=== PATIENT | female | born 1940 | race Caucasian/White ===

== ENCOUNTER → 2018-09-09 | Outpatient (CLI) | payer MEDICARE ==
--- NOTE | 2018-09-09 14:10 | Diagnostic Imaging Report ---
PROCEDURE:X-RAY ABDOMEN - KUB COMPARISON:None. INDICATIONS:KIDNEY STONES FINDINGS: There are no dilated loops of bowel to suggest obstruction. There are no masses. Linear hyperdensity in the right side of the pelvis could represent Steinstrasse. Right upper quadrant calcification likely are small gallstones. Calcification in the left upper quadrant changes positions with different patient positions. This is medial to the renal shadow. There is no evidence of free air. No acute osseous abnormalities are present. Diffuse degenerative changes of the spine with bridging osteophytosis at several levels. CONCLUSION: No acute abdominal abnormality. Noah Escoto D.O. Dictated by: Noah Escoto D.O. on 09/09/2018 at 14:21 Electronically approved by: Noah Escoto D.O. on 09/09/2018 at 14:21
--- NOTE | 2018-09-09 20:45 | Diagnostic Imaging Report ---
EXAM: Renal Ultrasound INDICATION: ^PRSNL HX OF URINARY CALCULI/CYST OF KIDNEY COMPARISON: None TECHNIQUE: Transverse and longitudinal images of the kidneys and bladder were obtained. FINDINGS: Right Kidney: Size: 11.2 x 5.3 x 4.5 cm Echogenicity: Normal Parenchymal thickness: Normal Collecting system: No hydronephrosis Stones: None Cyst/Mass: None Left Kidney: Size: 10.5 x 4.9 x 4.4 cm Echogenicity: Normal Parenchymal thickness: Normal Collecting system: No hydronephrosis Stones: None Cyst/Mass: * 1.7 x 1.5 x 1.5 cm simple cyst in the superior pole. * 2.8 x 1.6 x 1.7 cm cyst with a thin single septation in the inferior pole. Bladder: Normal Only the left ureteral jet is visualized. Prevoid volume 98 mL. No post void images were acquired. IMPRESSION: 1. No hydronephrosis. No renal stones. 2. 2 benign left renal cysts. Signed by: Dr. Gunnar Bowens M.D. on 09/09/2018 8:42 PM
== END ==
LOC: US 12:11
PROVIDERS: ATTEND Urology
DX: N28.1 Cyst of kidney, acquired (principal); Z87.442 Personal history of urinary calculi
CPT/HCPCS: 74018; 76770

== ENCOUNTER → 2020-10-13 | Outpatient (CLI) | payer MEDICARE | LOC: RAD 16:08 | PROVIDERS: ATTEND Internal Medicine | DX: R91.8 Other nonspecific abnormal finding of lung field (principal) | CPT/HCPCS: 71046 ==

== ENCOUNTER 2021-06-25 18:28 | Inpatient (IN) | payer MEDICARE ==
[~2021-06-25] VITALS: Ht 172.7 cm; Wt 85.7 kg
[~2021-06-25 18:28] MED LIST: FENTANYL CITRATE/PF 100MCG/2 ML INJ ONE
[2021-06-25 19:00] LABS: BASOPHILS % 0.2 % (0.0-1.0); EOSINOPHILS # (AUTO) 0.1 (0.0-0.4); HEMOGLOBIN 12.1 g/dL (12.0-16.0); LYMPHOCYTES # (AUTO) 1.3 (1.0-3.2); LYMPHOCYTES % 21.5 % (18.0-39.1); MEAN CORPUSCULAR HEMOGLOBIN 29.8 pg (28-32); MEAN CORPUSCULAR HGB CONC 31.8 g/dL (31-35); MEAN CORPUSCULAR VOLUME 93.6 fL (81-99); MONOCYTES # (AUTO) 0.6 (0.2-0.8); MONOCYTES % 9.2 % (4.4-11.3); NEUTROPHILS # (AUTO) 4.1 (2.1-6.9); NEUTROPHILS % 67.8 % (38.7-80.0); PLATELET COUNT 277 x10e3/uL (140-360); RED BLOOD COUNT 4.06 x10e6/uL (3.6-5.1); RED CELL DISTRIBUTION WIDTH 13.7 % (11.7-14.4)
[2021-06-25 19:10] LABS: CALCIUM 9.7 mg/dL (8.4-10.2); CREATININE, SERUM 0.94 mg/dL (0.57-1.11)
[2021-06-25 19:13] LABS: ALBUMIN 3.8 g/dL (3.5-5.0); BILIRUBIN,DIRECT 0.2 mg/dL (0.0-0.5)
[2021-06-25 20:45] VITALS: BP 154/75
[2021-06-25 21:43] VITALS: BP 154/75
[2021-06-25 21:44] VITALS: BP 154/75
[2021-06-25] MEDS ORDERED: LOSARTAN POTAS100 MG PO (22:31)
[2021-06-25] MEDS ORDERED: VERAPAMIL ER120 MG PO (22:31)
[2021-06-25] MEDS ORDERED: FAMOTIDINE 20 MG/2 ML VIAL IV STA (22:36)
[2021-06-25] MEDS ORDERED: ACETAMINOPHEN 325 MG TAB PO PRN (22:45)
[2021-06-25] MEDS ORDERED: HYDRALAZINE HCL 20 MG/ML VIAL IV PRN (22:45)
[2021-06-25] MEDS ORDERED: MORPHINE SULFATE INJ 2 MG/ML SYR IV PRN (22:45)
[2021-06-25] MEDS ORDERED: ONDANSETRON HCL INJ 2MG/ML 2ML 2 MG/ML VIAL IV PRN (22:45)
[2021-06-25] MEDS ORDERED: LOSARTAN POTASSIUM 100 MG TAB PO SCH (22:45)
[2021-06-25] MEDS ORDERED: ONDANSETRON HCL 4 MG ORAL DISINTEGRATING TAB PO PRN (22:45)
[2021-06-26] VITALS (9 sets, daily range): BP systolic 127–161; BP diastolic 60–92
[2021-06-26] MEDS: CEFTRIAXONE 1 GM in SODIUM CHLORIDE 0.9% 50ML 50 ML IV SCH ×2 (01:38→08:00)
[2021-06-26] MEDS: SODIUM CHLORIDE 0.45% 1,000 ML IV SCH ×3 (01:38→17:09)
[2021-06-26] MEDS: VERAPAMIL HCL 120 MG TABSR PO SCH ×2 (01:39→20:38)
[2021-06-26 06:24] LABS: ALBUMIN 3.2 g/dL (3.5-5.0); ALBUMIN/GLOBULIN RATIO 1.1 (0.8-2.0); ANION GAP 13.4 mmol/L (8-16); CALCIUM 8.9 mg/dL (8.4-10.2); CREATININE, SERUM 0.8 mg/dL (0.57-1.11); POTASSIUM 3.4 mmol/L (3.5-5.1)
[2021-06-26] MEDS: FAMOTIDINE 20 MG/2 ML VIAL IV SCH (08:00)
[2021-06-26] MEDS: LOSARTAN POTASSIUM 100 MG TAB PO SCH (09:05)
[2021-06-26] MEDS: POTASSIUM CHLORIDE 10MEQ EA PO SCH ×2 (10:34→11:48)
[2021-06-26] MEDS: MELATONIN 5 MG TABLET PO SCH (20:33)
[2021-06-27] VITALS (8 sets, daily range): BP systolic 111–162; BP diastolic 57–88
[2021-06-27] MEDS: SODIUM CHLORIDE 0.45% 1,000 ML IV SCH ×3 (04:18→23:38)
[2021-06-27 05:57] LABS: CALCIUM 8.6 mg/dL (8.4-10.2); CREATININE, SERUM 0.71 mg/dL (0.57-1.11)
[2021-06-27] MEDS: FAMOTIDINE 20 MG/2 ML VIAL IV SCH (08:33)
[2021-06-27] MEDS: CEFTRIAXONE 1 GM in SODIUM CHLORIDE 0.9% 50ML 50 ML IV SCH (08:33)
[2021-06-27] MEDS: LOSARTAN POTASSIUM 100 MG TAB PO SCH (08:37)
[2021-06-27] MEDS ORDERED: DIATRIZOATE MEGL/DIATRIZOA SOD 30 ML BTL PO ONE (09:12)
[2021-06-27] MEDS: METRONIDAZOLE 500MG/NS 100ML 100 ML IV SCH ×2 (10:46→16:31)
[2021-06-27] MEDS ORDERED: SODIUM CHLORIDE 0.9% 50ML 50 ML ONE (11:55)
[2021-06-27] MEDS ORDERED: IOPAMIDOL 370 MG/ML 200 ML INFUS..BTL INJ ONE (11:55)
[2021-06-27 19:45] LABS: WBC,FECAL (FECAL LACTOFERRIN) NEGATIVE (NEGATIVE)
[2021-06-27] MEDS: VERAPAMIL HCL 120 MG TABSR PO SCH (20:26)
[2021-06-27] MEDS: MELATONIN 5 MG TABLET PO SCH (21:27)
[2021-06-28] VITALS (8 sets, daily range): BP systolic 136–160; BP diastolic 64–98
[2021-06-28] MEDS: METRONIDAZOLE 500MG/NS 100ML 100 ML IV SCH ×3 (00:55→16:28)
[2021-06-28 06:15] LABS: BASOPHILS % 0.4 % (0.0-1.0); EOSINOPHILS # (AUTO) 0.1 (0.0-0.4); EOSINOPHILS % 2.8 % (0.0-6.0); HEMATOCRIT 32.6 % (34.2-44.1); HEMOGLOBIN 10.6 g/dL (12.0-16.0); LYMPHOCYTES # (AUTO) 0.9 (1.0-3.2); LYMPHOCYTES % 19.1 % (18.0-39.1); MEAN CORPUSCULAR HEMOGLOBIN 29.9 pg (28-32); MEAN CORPUSCULAR HGB CONC 32.5 g/dL (31-35); MEAN CORPUSCULAR VOLUME 92.1 fL (81-99); MONOCYTES # (AUTO) 0.6 (0.2-0.8); MONOCYTES % 11.8 % (4.4-11.3); NEUTROPHILS # (AUTO) 3.2 (2.1-6.9); NEUTROPHILS % 65.7 % (38.7-80.0); PLATELET COUNT 248 x10e3/uL (140-360); RED BLOOD COUNT 3.54 x10e6/uL (3.6-5.1); RED CELL DISTRIBUTION WIDTH 13.7 % (11.7-14.4)
[2021-06-28 06:50] LABS: ALBUMIN 3.2 g/dL (3.5-5.0); ALBUMIN/GLOBULIN RATIO 1.3 (0.8-2.0); ANION GAP 11.8 mmol/L (8-16); CALCIUM 8.8 mg/dL (8.4-10.2); CREATININE, SERUM 0.72 mg/dL (0.57-1.11); POTASSIUM 3.8 mmol/L (3.5-5.1)
[2021-06-28 08:13] LABS: C DIFFICILE TOXIN A&B AMP PROB NEGATIVE (NEGATIVE)
[2021-06-28] MEDS: FAMOTIDINE 20 MG/2 ML VIAL IV SCH (08:45)
[2021-06-28] MEDS: LOSARTAN POTASSIUM 100 MG TAB PO SCH (08:46)
[2021-06-28] MEDS: SODIUM CHLORIDE 0.45% 1,000 ML IV SCH ×2 (09:15→21:09)
[2021-06-28] MEDS: CEFTRIAXONE 1 GM in SODIUM CHLORIDE 0.9% 50ML 50 ML IV SCH (09:15)
[2021-06-28] MEDS ORDERED: ALPRAZOLAM 0.25 MG TAB PO PRN (12:45)
[2021-06-28] MEDS: VERAPAMIL HCL 120 MG TABSR PO SCH ×2 (12:45→21:10)
[2021-06-28] MEDS ORDERED: VERAPAMIL HCL 120 MG TABSR PO ONE (13:05)
[2021-06-28] MEDS: MELATONIN 5 MG TABLET PO SCH (21:10)
[2021-06-29] VITALS (7 sets, daily range): BP systolic 126–159; BP diastolic 59–75
[2021-06-29] MEDS: METRONIDAZOLE 500MG/NS 100ML 100 ML IV SCH ×3 (00:34→17:05)
[2021-06-29 00:43] LABS: FERRITIN 246.27 ng/mL (4.63-204.00)
[2021-06-29] MEDS ORDERED: SODIUM CHLORIDE 0.9% 50ML 50 ML ONE (05:19)
[2021-06-29] MEDS: SODIUM CHLORIDE 0.45% 1,000 ML IV SCH ×2 (06:09→16:13)
[2021-06-29] MEDS: CEFTRIAXONE 1 GM in SODIUM CHLORIDE 0.9% 50ML 50 ML IV SCH (08:43)
[2021-06-29] MEDS: IRON SUCROSE 100 MG in SODIUM CHLORIDE 0.9% 100 ML 100 ML IV SCH (08:43)
[2021-06-29] MEDS: LOSARTAN POTASSIUM 100 MG TAB PO SCH (08:44)
[2021-06-29] MEDS: VERAPAMIL HCL 120 MG TABSR PO SCH (09:31)
[2021-06-29] MEDS: MELATONIN 5 MG TABLET PO SCH (21:00)
[2021-06-30] VITALS (8 sets, daily range): BP systolic 119–150; BP diastolic 60–73
[2021-06-30] MEDS: SODIUM CHLORIDE 0.45% 1,000 ML IV SCH ×3 (02:30→22:51)
[2021-06-30] MEDS: METRONIDAZOLE 500MG/NS 100ML 100 ML IV SCH ×4 (08:53→17:17)
[2021-06-30] MEDS: LOSARTAN POTASSIUM 100 MG TAB PO SCH ×2 (08:54→09:00)
[2021-06-30] MEDS: VERAPAMIL HCL 120 MG TABSR PO SCH ×2 (08:54→09:00)
[2021-06-30] MEDS: CEFTRIAXONE 1 GM in SODIUM CHLORIDE 0.9% 50ML 50 ML IV SCH (10:27)
[2021-06-30] MEDS ORDERED: BUPIVACAINE 0.25% 30ML SDV ONE (10:29)
[2021-06-30] MEDS ORDERED: METOPROLOL TARTRATE INJ 1 MG/ML VIAL IV PRN (10:30)
[2021-06-30] MEDS ORDERED: FENTANYL CITRATE/PF 100MCG/2 ML INJ ONE (13:05)
[2021-06-30] MEDS: IRON SUCROSE 100 MG in SODIUM CHLORIDE 0.9% 100 ML 100 ML IV SCH (13:30)
[2021-06-30] MEDS: MELATONIN 5 MG TABLET PO SCH (21:16)
[2021-07-01] VITALS (8 sets, daily range): BP systolic 107–138; BP diastolic 52–70
[2021-07-01] MEDS: METRONIDAZOLE 500MG/NS 100ML 100 ML IV SCH ×3 (00:57→16:50)
[2021-07-01 06:36] LABS: BASOPHILS % 0.1 % (0.0-1.0); HEMATOCRIT 31.1 % (34.2-44.1); HEMOGLOBIN 10.3 g/dL (12.0-16.0); LYMPHOCYTES # (AUTO) 0.7 (1.0-3.2); LYMPHOCYTES % 9.4 % (18.0-39.1); MEAN CORPUSCULAR HEMOGLOBIN 30.1 pg (28-32); MEAN CORPUSCULAR HGB CONC 33.1 g/dL (31-35); MEAN CORPUSCULAR VOLUME 90.9 fL (81-99); MONOCYTES # (AUTO) 0.9 (0.2-0.8); MONOCYTES % 12.2 % (4.4-11.3); NEUTROPHILS # (AUTO) 5.6 (2.1-6.9); NEUTROPHILS % 77.5 % (38.7-80.0); PLATELET COUNT 263 x10e3/uL (140-360); RED BLOOD COUNT 3.42 x10e6/uL (3.6-5.1); RED CELL DISTRIBUTION WIDTH 13.9 % (11.7-14.4)
[2021-07-01 07:13] LABS: CALCIUM 8.5 mg/dL (8.4-10.2); CREATININE, SERUM 0.77 mg/dL (0.57-1.11)
[2021-07-01] MEDS: VERAPAMIL HCL 120 MG TABSR PO SCH (08:29)
[2021-07-01] MEDS: LOSARTAN POTASSIUM 100 MG TAB PO SCH (08:29)
[2021-07-01] MEDS: CEFTRIAXONE 1 GM in SODIUM CHLORIDE 0.9% 50ML 50 ML IV SCH (09:21)
[2021-07-01] MEDS: IRON SUCROSE 100 MG in SODIUM CHLORIDE 0.9% 100 ML 100 ML IV SCH (10:31)
[2021-07-01] MEDS: SODIUM CHLORIDE 0.45% 1,000 ML IV SCH (17:24)
[2021-07-01] MEDS: MELATONIN 5 MG TABLET PO SCH (20:59)
[2021-07-02] VITALS: BP 112/57
[2021-07-02] MEDS: METRONIDAZOLE 500MG/NS 100ML 100 ML IV SCH (00:44)
[2021-07-02] MEDS: SODIUM CHLORIDE 0.45% 1,000 ML IV SCH (00:44)
[2021-07-02 04:00] VITALS: BP 134/68
[2021-07-02 07:57] VITALS: BP 157/93
[2021-07-02 08:30] VITALS: BP 157/93
[2021-07-02] MEDS: LOSARTAN POTASSIUM 100 MG TAB PO SCH (08:30)
[2021-07-02] MEDS: VERAPAMIL HCL 120 MG TABSR PO SCH (08:30)
== END 2021-07-02 11:14 | disposition home or self-care (01) | DRG 336 ==
LOC: ER 18:56 → ERHOLD 19:11 → MED/SURG3 20:53 → OBSVTOIN 06-27 08:53
PROVIDERS: ADMIT Internal Medicine; ATTEND Internal Medicine
PROC: 0DN84ZZ Release Small Intestine, Percutaneous Endoscopic Approach (ICD-10-PCS; 2021-06-30)
PROC: 0DNM4ZZ Release Descending Colon, Percutaneous Endoscopic Approach (ICD-10-PCS; principal; 2021-06-30 10:00)
DX: K56.51 Intestinal adhesions [bands], with partial obstruction (principal); A08.39 Other viral enteritis; K80.20 Calculus of gallbladder without cholecystitis without obstruction; I10 Essential (primary) hypertension; M19.90 Unspecified osteoarthritis, unspecified site; J30.9 Allergic rhinitis, unspecified; Z88.5 Allergy status to narcotic agent; Z88.0 Allergy status to penicillin; Z88.2 Allergy status to sulfonamides; I16.0 Hypertensive urgency; F41.9 Anxiety disorder, unspecified; E86.0 Dehydration; Z20.822 Contact with and (suspected) exposure to COVID-19
CPT/HCPCS: 36415; 71045; 74019; 74022; 74177; 80048; 80053; 80076; 82607; 82728; 82746; 83540; 83630; 83690; 83993; 84466; 85025; 85045; 87045; 87177; 87493; 93005; 96361; 99251; 99284; G0378; J0360; J0696; J1756; J2270; J3010; Q9967; U0002

== ENCOUNTER → 2022-04-05 | Outpatient (CLI) | payer MEDICARE ==
[~2022-04-05] MED LIST changes: -FENTANYL CITRATE/PF 100MCG/2 ML INJ ONE; +IOPAMIDOL 370 MG/ML 100 ML INFUS..BTL INJ ONE; +LOSARTAN POTAS100 MG PO; +VERAPAMIL ER120 MG PO
[2022-04-05 10:49] LABS: CREATININE, SERUM 0.83 mg/dL (0.57-1.11)
== END ==
LOC: CT 09:49
PROVIDERS: ATTEND Internal Medicine Gastroenterology
DX: R10.9 Unspecified abdominal pain (principal); R19.5 Other fecal abnormalities; K62.89 Other specified diseases of anus and rectum
CPT/HCPCS: 36415; 74177; 82565; 84520; Q9967

== ENCOUNTER → 2022-05-22 | Day surgery (SDC) | payer MEDICARE ==
[2022-05-17 14:30] LABS: BASOPHILS % 0.6 % (0.0-1.0); EOSINOPHILS # (AUTO) 0.2 (0.0-0.4); EOSINOPHILS % 3.2 % (0.0-6.0); HEMATOCRIT 34.8 % (34.2-44.1); HEMOGLOBIN 11.1 g/dL (12.0-16.0); LYMPHOCYTES # (AUTO) 1.3 (1.0-3.2); LYMPHOCYTES % 24.1 % (18.0-39.1); MEAN CORPUSCULAR HGB CONC 31.9 g/dL (31-35); MEAN CORPUSCULAR VOLUME 94.1 fL (81-99); MONOCYTES # (AUTO) 0.6 (0.2-0.8); MONOCYTES % 10.4 % (4.4-11.3); NEUTROPHILS # (AUTO) 3.3 (2.1-6.9); NEUTROPHILS % 61.5 % (38.7-80.0); PLATELET COUNT 262 x10e3/uL (140-360); RED CELL DISTRIBUTION WIDTH 13.6 % (11.7-14.4)
[~2022-05-22] MED LIST changes: +ASPIRIN81 MG PO; +FENTANYL CITRATE/PF 100MCG/2 ML INJ ONE; -IOPAMIDOL 370 MG/ML 100 ML INFUS..BTL INJ ONE; +MAGNESIUM OXID400 MG PO; +MULTI-VITAMIN1 EACH PO; +PROBIOTIC & AC1 EACH PO; +TURMERIC500 M1 PO; +VIT B12 PO; +VIT D3 PO; +VIT E PO; +ZINC PO
[2022-05-22 15:35] VITALS: BP 134/71
== END | disposition home or self-care (01) ==
LOC: OR 10:50
PROVIDERS: ATTEND Internal Medicine Gastroenterology
DX: K62.89 Other specified diseases of anus and rectum (principal); D12.5 Benign neoplasm of sigmoid colon; K56.609 Unspecified intestinal obstruction, unspecified as to partial versus complete obstruction; K64.8 Other hemorrhoids; D64.9 Anemia, unspecified; I10 Essential (primary) hypertension; E78.5 Hyperlipidemia, unspecified; N20.0 Calculus of kidney; H91.90 Unspecified hearing loss, unspecified ear; Z88.0 Allergy status to penicillin; Z88.6 Allergy status to analgesic agent; Z88.2 Allergy status to sulfonamides; Z01.812 Encounter for preprocedural laboratory examination; Z79.82 Long term (current) use of aspirin; Z79.899 Other long term (current) drug therapy; Z86.73 Personal history of transient ischemic attack (TIA), and cerebral infarction without residual deficits
CPT/HCPCS: 36415; 45380; 85025; 88305; J3010; 45378